=== PATIENT | male | born 1990 | race Caucasian/White ===

== ENCOUNTER 2025-05-15 18:01 | Emergency (ER) | payer OTHER, SELFPAY ==
[2025-05-15 18:15] VITALS: BP 157/79; PULSE 105; RESP 16; TEMP 37.2; O2SAT 97; BMI 25.1
--- NOTE | 2025-05-15 18:20 | DI.RAD.S_ITS ---
PROCEDURE: XR FOOT RT MIN 3V INDICATIONS: pain/swelling/injury TECHNIQUE: 3 views of the foot were acquired. COMPARISON: None. FINDINGS: Bones: No acute fractures or dislocations. No suspicious bony lesions. Mild hallux valgus. Soft tissues: 2 mm radiodensity is seen along the skin surface at the plantar forefoot projecting at the 1st intermetatarsal space on AP view. Nonspecific soft tissue edema is present. IMPRESSION: No acute osseous abnormality. Nonspecific soft tissue edema. Small radiodensity along the skin surface at the plantar forefoot. Approved by: Bertram Olsen M.D. on 05/15/2025 at 19:19
--- NOTE | 2025-05-15 18:20 | DI.RAD.S_ITS ---
PROCEDURE: XR TOE RT MIN 2V INDICATIONS: pain/swelling/injury TECHNIQUE: AP view of the foot in two views of the great toe acquired. COMPARISON: None. FINDINGS: Bones: No acute fractures or dislocations. No suspicious bony lesions. Hallux valgus. Soft tissues: Nonspecific soft tissue edema is seen in the forefoot. A 2 mm radiopaque foreign body is seen along the skin surface at the plantar forefoot. IMPRESSION: No acute osseous abnormality. Nonspecific soft tissue swelling. Small radiodensity is seen along the skin surface at the plantar forefoot. Approved by: Bertram Olsen M.D. on 05/15/2025 at 19:20
== END 2025-05-15 21:52 | disposition left against medical advice (07) ==
PROVIDERS: Emergency Provider Emergency Medicine
DX: S99.921A Unspecified injury of right foot, initial encounter (principal); W22.8XXA Striking against or struck by other objects, initial encounter
CPT/HCPCS: 73630; 73660; 99281

== ENCOUNTER 2025-05-16 02:18 | Emergency (ER) | payer OTHER, SELFPAY ==
[2025-05-16 02:30] VITALS: BP 125/84; PULSE 102; RESP 18; TEMP 36.7; O2SAT 99; BMI 25.1
--- NOTE | 2025-05-16 02:33 | ED_ITS ---
HPI - General Adult General Chief complaint: Extremity Injury, Lower Stated complaint: Broken Rt foot x7days, needs Xray Time Seen by Provider: 05/16/25 02:32 History of Present Illness HPI narrative: 35-year-old male reports dropping a kayak onto his right toe, having some injury to the nail, with increasing pain and redness along the great toe and foot. No fevers. Hurts with movements. He presented earlier this shift, apparently had x-rays in the waiting room and then departed, went to ED [facility] where there was also along weight, and then returned here for results of his previous x-rays. No interim new injuries. He was not seen as a patient at ED [facility]. Related Data Home Medications ?Medication ?Instructions ?Recorded ?Confirmed Citalopram Hydrobromide 20 mg PO Q DAY ##0 07/26/10 (Citalopram HBr) Cyclobenzaprine Hydrochloride 0 mg PO * UK DOSE/FREQUE NCY ##0 07/26/10 (CYCLOBENZAPRINE HCL) Nortriptyline Hydrochloride 0 mg PO * UK DOSE/FREQUENC Y ##0 07/26/10 (Pamelor) TRAMADOL HYDROCHLORIDE (Ultram) 0 mg PO *UK DOSE/FREQU ENCY ##0 07/26/10 methocarbamol 750 mg tablet ##0 07/26/10 Allergies Allergy/AdvReac Type Severity Reaction Status Date / Time No Known Drug Allergies Allergy Verified 05/16/25 02:30 Patient History tobacco type: vaping Exam Narrative Exam Narrative: GENERAL: Well-developed patient, in mild distress. HEAD: Atraumatic. Normocephalic. EYES: Pupils equal round and reactive. Extraocular motions intact. No scleral icterus. No injection or drainage. ENT: Nose without bleeding, purulent drainage. Throat without erythema, tonsillar hypertrophy or exudate. Airway patent. NECK: Trachea midline. Non tender CARDIOVASCULAR: Regular rate and rhythm without murmurs, gallops, or rubs. RESPIRATORY: Clear to auscultation. Breath sounds equal bilaterally. No wheezes, rales, or rhonchi. GASTROINTESTINAL: Abdomen soft, non-tender, nondistended. EXTREMITIES: Right great toe with erythema, no subungual hematoma seems obvious, there is redness that extends a little bit into the dorsal foot. No streaking up the ankle or leg. No fluid from underneath the nailbed seems obvious. No fluctuance periungual. BACK: Nontender without deformity or crepitance. No flank tenderness. NEURO: AOx3. Motor functions grossly nonfocal. SKIN: No rash or erythema of visible areas Initial Vital Signs Initial Vital Signs: Vital Signs Temperature 98.0 F 05/16/25 02:30 Pulse Rate 102 H 05/16/25 02:30 Respiratory Rate 18 05/16/25 02:30 Blood Pressure 125/84 05/16/25 02:30 Pulse Oximetry 99 05/16/25 02:30 Oxygen Delivery Method Room Air 05/16/25 02:30 Course Orders Ordered: ED Orders 05/16/25 03:21 Consult to [facility] Stat Discontinued Medications Hydrocodone Bitart/Acetaminophen (Hydrocodone/Acet 5/325 Prepack) 1 bottle MISC DIRECTED ONE Stop: 05/16/25 02:48 Last Admin: 05/16/25 03:01 Dose: 1 bottle Documented By: SARABJIT Cephalexin HCl (Cephalexin 250 Mg Capsule) 500 mg PO NOW ONE Stop: 05/16/25 02:55 Last Admin: 05/16/25 03:01 Dose: 500 mg Documented By: SARABJIT Ketorolac Tromethamine (Ketorolac 30 Mg/Ml Vial) 30 mg IM NOW ONE Stop: 05/16/25 02:50 Last Admin: 05/16/25 03:02 Dose: 30 mg Documented By: SARABJIT Vital Signs Vital signs: Vital Signs - 8 hr 05/16/25 02:30 Temperature 98.0 F Pulse Rate 102 H Respiratory Rate 18 Blood Pressure 125/84 Pulse Oximetry 99 Oxygen Delivery Method Room Air Medical Decision Making Imaging Data Extremity x-ray #1: Radiologist's Impression: [address] [address] XRay Report Signed Patient: Sami Bowden MR#: [id number] : 1990 Acct:[id number] Age/Sex: 35 / M Date of Service: 05/15/25 Loc: ED Accession Number: [id number] Procedure: XR foot RT min 3V Ordering Provider: Parveen Kramer MD PROCEDURE: XR FOOT RT MIN 3V INDICATIONS: pain/swelling/injury TECHNIQUE: 3 views of the foot were acquired. COMPARISON: None. FINDINGS: Bones: No acute fractures or dislocations. No suspicious bony lesions. Mild hallux valgus. Soft tissues: 2 mm radiodensity is seen along the skin surface at the plantar forefoot projecting at the 1st intermetatarsal space on AP view. Nonspecific soft tissue edema is present. IMPRESSION: No acute osseous abnormality. Nonspecific soft tissue edema. Small radiodensity along the skin surface at the plantar forefoot. Approved by: Bertram Olsen M.D. on 05/15/2025 at 19:19 Extremity x-ray #2: Radiologist's Impression: [address] [address] XRay Report Signed Patient: Sami Bowden MR#: [id number] : 1990 Acct:[id number] Age/Sex: 35 / M Date of Service: 05/15/25 Loc: Accession Number: [id number] Procedure: XR toe RT min 2V Ordering Provider: Parveen Kramer MD PROCEDURE: XR TOE RT MIN 2V INDICATIONS: pain/swelling/injury TECHNIQUE: AP view of the foot in two views of the great toe acquired. COMPARISON: None. FINDINGS: Bones: No acute fractures or dislocations. No suspicious bony lesions. Hallux valgus. Soft tissues: Nonspecific soft tissue edema is seen in the forefoot. A 2 mm radiopaque foreign body is seen along the skin surface at the plantar forefoot. IMPRESSION: No acute osseous abnormality. Nonspecific soft tissue swelling. Small radiodensity is seen along the skin surface at the plantar forefoot. Approved by: Bertram Olsen M.D. on 05/15/2025 at 19:20 MDM Narrative Medical decision making narrative: Right dorsal foot contusion, arnold dropped onto foot a few days ago, increasing redness to the right great toe extending up in the dorsal foot. Consider cellulitis. Screening x-rays apparently done earlier today when he was in the waiting room and then decided to leave. Came back after long wait at [facility] as well, not seen there, to be seen for his same problem, no new injury. X-rays of the right great toe and right foot without obvious fractures. See radiology reports. Patient given oral cephalexin in case of cellulitis, prescription sent to his pharmacy. Pacer in walking boot with crutches. Patient left before being issued discharge instructions, per nursing expressed understanding that he would be followed up with his pharmacy to get further antibiotics later today. Apparently he was hurrying to try to go to work. Wound check had been advised in 2 days here or with local orthopedic surgery. Discharge Plan Departure Patient Disposition: Home Clinical Impression: Contusion of right foot, Contusion of toe of right foot, Cellulitis of right toe Activity Restrictions/Additional Instructions: Right great toe and dorsal foot redness and swelling after dropping a kayak on it 5 days ago, increasing redness today. X-ray done earlier today showed no obvious fracture to the foot or to the great toe. You have some redness as well, possible cellulitis skin infection component of your pain and swelling and redness. Oral antibiotic cephalexin given today, prescription for further antibiotics sent to your pharmacy. Home pack of hydrocodone/acetaminophen to use for pain control if needed. Crutches nonweightbearing, walking boot to the right foot ankle. Recheck in orthopedic clinic advised. Prescriptions: No Action methocarbamol 750 MG tablet Qty: 0 Citalopram Hydrobromide (Citalopram HBr) 20 mg PO Q DAY Qty: 0 Nortriptyline Hydrochloride (Pamelor) 0 mg PO * UK DOSE/FREQUENCY Qty: 0 TRAMADOL HYDROCHLORIDE (Ultram) 0 mg PO *[place] DOSE/FREQUENCY Qty: 0 Cyclobenzaprine Hydrochloride (CYCLOBENZAPRINE HCL) 0 mg PO * [place] DOSE/FREQUENCY Qty: 0 Referrals: Nathan Booth MD [Physician, Orthopedic Surgery] Stand Alone Forms: Patient Portal/API
--- NOTE | 2025-05-16 02:46 | PC.NURSE ---
pt c/o redness and swelling to right foot and great toe and injury several days ago, unable to bear weight d/t the pain and swelling, foot noted red and swollen
[2025-05-16] MEDS: KETOROLAC 30 MG/ML VIAL IM (03:02)
== END 2025-05-16 03:27 | disposition home or self-care (01) ==
PROVIDERS: Emergency Provider Emergency Medicine
DX: S90.31XA Contusion of right foot, initial encounter (principal); S90.211A Contusion of right great toe with damage to nail, initial encounter; L03.031 Cellulitis of right toe; W22.8XXA Striking against or struck by other objects, initial encounter
CPT/HCPCS: 96372; 99283; J1885

== ENCOUNTER 2025-05-17 08:43 | Emergency (ER) | payer OTHER, SELFPAY ==
--- NOTE | 2025-05-17 08:46 | ED.LOWEXIN ---
HPI - Extremity Injury (Lower) General Chief Complaint: Recheck/Abnormal Lab/Rx Stated Complaint: Infection in foot Time Seen by Provider: 05/17/25 08:45 History of Present Illness HPI Narrative: 35-year-old male no significant past medical history comes into the ED from home for evaluation of persistent pain to right toe. States that he dropped a cardiac onto his right toe, was seen here yesterday was already discharged with oral antibiotics., x-rays did not show any acute traumatic bony injuries. He denies any new symptoms at this time states that he thought he was already going to be better by now after taking medications. He denies any new symptoms denies any new injuries. He has his walking both that it was discharged home with. Related Data Home Medications ?Medication ?Instructions ?Recorded ?Confirmed Citalopram Hydrobromide 20 mg PO Q DAY ##0 07/26/10 (Citalopram HBr) Cyclobenzaprine Hydrochloride 0 mg PO * UK DOSE/FREQUENCY ##0 07/26/10 (CYCLOBENZAPRINE HCL) Nortriptyline Hydrochloride 0 mg PO * UK DOSE/FREQUENCY ##0 07/26/10 (Pamelor) TRAMADOL HYDROCHLORIDE (Ultram) 0 mg PO *UK DOSE/FREQUENCY ##0 07/26/10 methocarbamol 750 mg tablet ##0 07/26/10 Previous Rx's ?Medication ?Instructions ?Recorded oxycodone-acetaminophen 5 mg-325 1 tab PO Q8H PRN pain 3 days #9 05/17/25 mg tablet (Percocet) tabs Allergies Allergy/AdvReac Type Severity Reaction Status Date / Time No Known Drug Allergies Allergy Verified 05/17/25 08:54 Review of Systems Review of Systems Narrative: General: Denies fever, chills, weight loss HEENT: Denies headache, eye drainage, eye irritation, head trauma, sore throat, voice change Cardiovascular: Denies any chest pain, palpitations, tachycardia Respiratory: Denies any shortness of breath, cough, wheeze, stridor GI/: Denies any abdominal pain, nausea, vomiting, diarrhea, bright red blood per rectum, melanotic stools, urinary frequency, urinary retention, dysuria, hematuria MSK: Right toe redness pain Skin: Denies any rashes, lesions, discoloration Neuro: Denies any headache, lightheadedness, dizziness, fainting, weakness Psych: Denies SI/HI Patient History tobacco type: vaping Exam Narrative Exam Narrative: General: Cooperative, well-developed, not in acute distress HEENT: Normocephalic, atraumatic, PERRLA, normal sclera, eyelids normal Neck: Active full range of motion, atraumatic Chest: Normal to inspection, negative crepitus, no overlying erythema ecchymosis Respiratory: Normal respiratory effort, not in acute respiratory distress, clear to auscultation bilaterally negative cough, wheeze, tachypnea, rhonchi, rales Cardiology: Regular rate rhythm negative gallop, murmur, rubs GI/: No tenderness to palpation, soft, non rigid, normal to inspection, exam deferred MSK: Patient with erythema noted to the right foot toe but no streaking, toenail has already been removed on the right great toe. He is otherwise neurovascularly intact Skin: No rashes or lesions noted Neuro: Alert awake oriented x3, moves all 4 extremities spontaneously, cranial nerves intact, able to answer all questions appropriately follows commands appropriately Psych: Cooperative, negative suicidal or homicidal ideations MDM - Extremity Injury (Lower) MDM Narrative Medical decision making narrative: 35-year-old male no significant past medical history presents for persistent pain to his right toe after dropping a kayak on it. He states that he comes in because he is still having pain, states that he thought that taking 1 day of antibiotics would help with the redness and pain, he denies any new symptoms denies any new injuries. States that he just thought that he was supposed to already a ?get better by now on my exam there is some erythema noted to the toe but no streaking, he is neurovascularly intact, he already had a boot in place. Additional workup imaging required at this time. Patient verbalized understanding and agrees to being discharged home with outpatient follow up. Patient was given a dose of medication here for pain and sent home with a prescription. Patient was seen here already yesterday on 05/16/2025, had x-rays of his foot and toe no acute bony traumatic injuries. Patient was already discharged home with oral Keflex for cellulitis. He was also prescribed hydrocodone/acetaminophen for the pain. Discharge Plan Departure Patient Disposition: Home Clinical Impression: Pain in toe Activity Restrictions/Additional Instructions: Please follow up with primary care doctor, please take your medications as prescribed Please read the discharge instructions sheet carefully and bring all papers to all doctor follow-up visits, as it may contain information that your doctor may want to see. Disease processes change and evolve, if your symptoms worsen or if you develop any new symptoms that are concerning to you please return for evaluation. Your evaluation today does not show any evidence of any life-threatening/serious illnesses requiring admission to the hospital or surgery. Please follow-up with your doctor for re-evaluation in approximately 1 day. Seek immediate medical attention for any worrisome symptoms. *If you do not have a primary care provider please contact the [facility] Resource line at [phone]. They will ask some questions about your medical history and help get you set up with a doctor in the community. Prescriptions: New oxycodone-acetaminophen [Percocet] 5-325 mg tablet 1 tab PO Q8H PRN (Reason: pain) 3 Days Qty: 9 0RF No Action methocarbamol 750 MG tablet Qty: 0 Citalopram Hydrobromide (Citalopram HBr) 20 mg PO Q DAY Qty: 0 Nortriptyline Hydrochloride (Pamelor) 0 mg PO * [place] DOSE/FREQUENCY Qty: 0 TRAMADOL HYDROCHLORIDE (Ultram) 0 mg PO *[place] DOSE/FREQUENCY Qty: 0 Cyclobenzaprine Hydrochloride (CYCLOBENZAPRINE HCL) 0 mg PO * [place] DOSE/FREQUENCY Qty: 0 Stand Alone Forms: Patient Portal/API, Work Release Note
[2025-05-17 08:53] VITALS: BP 144/82; PULSE 76; RESP 16; TEMP 37; O2SAT 98
== END 2025-05-17 09:06 | disposition home or self-care (01) ==
LOC: ED 08:59
PROVIDERS: Emergency Provider Student in an Organized Health Care Education/Training Program
DX: M79.674 Pain in right toe(s) (principal)
CPT/HCPCS: 99283

== ENCOUNTER 2025-05-19 10:17 | Emergency (ER) | payer OTHER, SELFPAY ==
[2025-05-19 10:19] VITALS: BP 116/56; PULSE 73; RESP 14; TEMP 36.7; O2SAT 98; BMI 25.1
== END 2025-05-19 11:23 | disposition left against medical advice (07) ==
PROVIDERS: Emergency Provider Physician Assistant
CPT/HCPCS: 99281